=== PATIENT | male | born 1975 | race Caucasian/White ===

== ENCOUNTER 2019-09-13 19:30 | Emergency (ER) | payer OTHER, SELFPAY ==
--- NOTE | ~2019-09-13 | XR_ITS ---
EXAMINATION: XR chest 2V DATE: 09/13/2019 20:03 INDICATION: Shortness of breath, cough, congestion and chills TECHNIQUE: PA and lateral views of the chest were obtained. COMPARISON: None FINDINGS: The lungs are clear with no focal airspace opacities, pulmonary edema, pleural effusion or pneumothor ax. The cardiomediastinal silhouette is normal. Mild thoracic spondylosis. IMPRESSION: 1. No acute cardiopulmonary disease. Reviewed, dictated and finalized at location A. R/RELAY TECHNICIAN
[2019-09-13 19:32] VITALS: BP 142/88; PULSE 84; RESP 16; TEMP 36.9; O2SAT 99
--- NOTE | 2019-09-13 20:12 | ED.URI ---
HPI - URI/Sore Throat General Chief Complaint: Upper Respiratory Infection <Noemí Bernal PA-C - Last Filed: 09/13/19 20:25> Stated Complaint: cold <ABHIJIT España Last Filed: 09/13/19 20:25> Time Seen by Provider: 09/13/19 19:56 <ABHJIIT España Last Filed: 09/13/19 20:25> Source: patient <ABHIJIT España Last Filed: 09/13/19 20:25> Mode of arrival: ambulatory <ABHIJIT España Last Filed: 09/13/19 20:25> Limitations: no limitations <ABHIJIT España Last Filed: 09/13/19 20:25> History of Present Illness HPI Narrative: This is a 44 year old male that presents to the ER for cold symptoms x 3 days. Reports subjective fevers, cough, congestion, rhinorrhea, and myalgias. Reports he feels like he has been wheezing and feels a little short of breath. Denies chest pain. <ABHIJIT España Last Filed: 09/13/19 20:25> Related Data Home Medications: Home Medications Medication Instructions Recorded Confirmed felodipine 5 mg PO DAILY 07/05/19 07/05/19 methylphenidate HCl [Concerta] 54 mg PO QAM 07/05/19 07/05/19 <ABHIJIT España Last Filed: 09/13/19 20:25> Allergies/Adverse Reactions: Allergies Allergy/AdvReac Type Severity Reaction Status Date / Time No Known Allergies Allergy Verified 09/13/19 20:40 <ABHIJIT España Last Filed: 09/13/19 20:25> Review of Systems Review of Systems: Narrative: CONSTITUTIONAL: Reports fever, chills ENT: Reports rhinorrhea, congestion. Denies sore throat, or otalgia. CARDIOVASCULAR: Denies chest pain RESPIRATORY: Reports cough and dyspnea. NEUROLOGIC: Denies weakness. <ABHIJIT España Last Filed: 09/13/19 20:25> All systems reviewed & are unremarkable except as noted in HPI and below <Noemí Bernal PA-C - Last Filed: 09/13/19 20:25> [facility] Past Medical History Medical History: Medical History (Updated 09/13/19 @ 20:24 by Noemí Bernal PA-C) History of hypertension <Noemí Bernal PA-C - Last Filed: 09/13/19 20:25> Social History Social History: Social History (Updated 07/05/19 @ 13:51 by Anne Dueñas) Smoking status: Never smoker Alcohol intake: never Gender identity (if verbalized by the patient): Male <Noemí Bernal PA-C - Last Filed: 09/13/19 20:25> Exam Narrative: Exam Narrative: GENERAL: Well-appearing, well-nourished, and in no acute distress. HEAD: Normocephalic, atraumatic. EYES: EOMI. ENT: Turbinates swollen and pale. Mucous membranes moist. Oropharynx without tonsillar hypertrophy exudate or other lesions. Bilateral TMs pearly gutierrez non-bulging NECK: Supple. No adenopathy or masses. CHEST: Clear to auscultation. No respiratory distress. Minimal scattered wheezes. No rales or rhonchi HEART: Regular rate and rhythm. No murmur heard. Normal peripheral pulses. EXTREMITIES: Normal range of motion. No edema. SKIN: Warm, dry, no rash. NEURO: No focal deficits. Alert and oriented x3. PSYCH: Normal mood and affect <Noemí Bernal PA-C - Last Filed: 09/13/19 20:25> Course Vital Signs Vital signs: Vital Signs Temperature 36.9 C 09/13/19 19:32 Pulse Rate 84 09/13/19 19:32 Respiratory Rate 16 09/13/19 19:32 Blood Pressure 142/88 H 09/13/19 19:32 Pulse Oximetry 99 09/13/19 19:32 Temperature 37.3 C 09/13/19 20:41 Pulse Rate 87 09/13/19 20:41 Respiratory Rate 18 09/13/19 20:41 Blood Pressure 134/95 H 09/13/19 20:41 Pulse Oximetry 97 09/13/19 20:41 <Noemí Bernal PA-C - Last Filed: 09/13/19 20:25> Vital Signs Temperature 36.9 C 09/13/19 19:32 Pulse Rate 84 09/13/19 19:32 Respiratory Rate 16 09/13/19 19:32 Blood Pressure 142/88 H 09/13/19 19:32 Pulse Oximetry 99 09/13/19 19:32 Temperature 37.3 C 09/13/19 20:41 Pulse Rate 87 09/13/19 20:41 Respiratory Rate 18 09/13/19 20:41 Blood Pressure 134/95 H 09/13/19 20:41 Pulse Oximetr
[2019-09-13 20:41] VITALS: BP 134/95; PULSE 87; RESP 18; TEMP 37.3; O2SAT 97
== END 2019-09-13 20:45 | disposition home or self-care (01) ==
PROVIDERS: Emergency Provider Emergency Medicine
DX: B34.9 Viral infection, unspecified (principal); I10 Essential (primary) hypertension
CPT/HCPCS: 71046; 87804; 99283